=== PATIENT | male | born 1970 | race Caucasian/White ===

== ENCOUNTER 2025-02-27 11:02 | Emergency (ER) | payer BC, SELFPAY ==
--- NOTE | 2025-02-27 11:05 | ED.URI ---
HPI - URI/Sore Throat General Chief Complaint: Upper Respiratory Infection Stated Complaint: Sinus Infection Symptoms/Rib Pain Time Seen by Provider: 02/27/25 11:05 Source: patient Mode of arrival: ambulatory Limitations: no limitations History of Present Illness HPI Narrative: Jesús is a 54 year old male patient presenting to the clinic today with complaints of nasal congestion, sinus pressure, sneezing, nonproductive cough, and bilateral rib pain from sneezing and coughing. He reports symptoms have been going on for 5 days. He denies any fevers, chills, body aches, chest pain, or shortness of breath. States ribs only her when he is coughing or sneezing. No known sick contacts. Has been taking Afrin nasal spray for nasal congestion. Has had to call off work for 2 shifts and is needing a work note to return to work. Patient reports he is feeling better Related Data Allergies Allergy/AdvReac Type Severity Reaction Status Date / Time No Known Allergies Allergy Verified 02/27/25 11:30 Review of Systems Review of Systems: Pertinent positives per HPI. Patient denies any fever, chills, rash, headache, visual changes, dizziness, cough, shortness of breath, chest pain, palpitations, nausea, vomiting, diarrhea, constipation, abdominal pain, or any urinary issues. PMFSH Comments At the time of my signature, I reviewed and agree with the nursing past medical, surgical, social, and family history. There is no relevant family history pertinent to the patient complaint. Exam Narrative: General: Well-developed, well nourished, in no apparent distress Head: Normocephalic, atraumatic Eyes: Pupils equally round and reactive to light bilaterally, EOM intact, sclera and conjunctive clear, no discharge, lids normal Ears: TMs intact and clear, ear canals clear, no drainage, grossly hearing normal. Nose: Nares patent, clear nasal discharge, severe right turbinates inflammation, moderate left turbinates inflammation, right maxillary tenderness. Mouth: Oral pharynx without lesions or masses, good dentition, MMM. Postnasal drip Neck: Supple, trachea midline, no enlargement of anterior or posterior cervical nodes, no thyroid masses or goiter palpable. Cardio: Regular rate and rhythm, s1 and s2 normal, no murmur appreciated. Resp: Clear to auscultation bilaterally, no rhonchi, rales, wheezing or rubs Course Course Emergency Course: Portions of this record may have been created with voice recognition software. Level of Care: Express Care Visit Vital Signs Vital signs: Vital Signs Temperature 36.8 C 02/27/25 11:17 Pulse Rate 91 02/27/25 11:17 Respiratory Rate 14 02/27/25 11:17 Blood Pressure 131/79 02/27/25 11:17 Pulse Oximetry 99 02/27/25 11:17 Oxygen Delivery Room Air 02/27/25 11:17 Temperature 36.8 C 02/27/25 11:17 Pulse Rate 91 02/27/25 11:17 Respiratory Rate 14 02/27/25 11:17 Blood Pressure 131/79 02/27/25 11:17 Pulse Oximetry 99 02/27/25 11:17 Oxygen Delivery Room Air 02/27/25 11:17 Vital signs reviewed MDM - URI/Sore Throat MDM Narrative Medical decision making narrative: At the time of visit patient is resting comfortably on the exam table. Patient appears to be nontoxic. Complaints of nasal congestion, sinus pressure, sneezing, nonproductive cough, and bilateral rib pain from sneezing and coughing. He reports symptoms have been going on for 5 days. He denies any fevers, chills, body aches, chest pain, or shortness of breath. States ribs only her when he is coughing or sneezing. No known sick contacts. Has been taking Afrin nasal spray for nasal congestion. Has had to call off work for 2 shifts and is needing a work note to return to work. Patient reports he is feeling better. On exam patient has severe turbinates swelling of the right nare and moderate turbinates swelling to the left with right maxilla tenderness. Clear nasal drainage Plan: I suspect patient has viral/allergic sinusitis. Prescription for prednisone was sent to the pharmacy as this will help with the sinus pressure, congestion, and inflammation in his rib cage Work note was given. Supportive measures were discussed with the patient and they voiced understanding discharge instructions and agrees to treatment plan. Return precautions reviewed Differential Diagnosis Differential diagnosis: Likely upper respiratory infection, otitis media, sinusitis, viral infection, bronchitis, influenza, pharyngitis and other (COVID, rib contusion, rib fracture, pneumonia) Discharge Plan Discharge Clinical Impression: Sinusitis Qualifiers: Sinusitis location: maxillary Chronicity: acute Recurrence: non-recurrent Qualified Code(s): J01.00 - Acute maxillary sinusitis, unspecified Patient Disposition: Home Condition: Stable Instructions: Antibiotic Form, Sinusitis (ED) Additional Instructions: I suspect you likely have viral sinusitis. Take prescription medications only as prescribed-prednisone Increase fluids and stay well hydrated May take Tylenol or motrin as directed on bottle for pain/fever May use Flonase 1 spray in each nare daily May take OTC antihistamines such as Zyrtec or Claritin daily as directed on bottle May apply Vicks vapor rub to chest to open sinuses Sinus rinses for congestion Cepacol spray, cough drops, throat lozenges, warm tea with honey/lemon, gargle salt water to soothe throat BRAT diet for diarrhea Clear liquids x 24 hours then advance as tolerated for nausea/vomiting Go to the ED if you develop a worsening in your condition- high fever not controlled by Tylenol or Motrin, dehydration, weakness, lethargy, shortness of breath, or chest pain. Follow up with your PCP in 3-5 days if symptoms persist. Patient Language: Cypriot Prescriptions: New prednisone 20 mg tablet 40 mg PO DAILY 5 Days Qty: 10 0RF Follow-up/Referrals: Duong Phillips MD [Primary Care Provider] - Stand Alone Forms: Work/School Release IP Time of Disposition: 11:25 Quality NIHSS Nursing Documentation ED NIHSS nursing documentation: reviewed/agree
[2025-02-27 11:17] VITALS: BP 131/79; PULSE 91; RESP 14; TEMP 36.8; O2SAT 99
== END 2025-02-27 11:31 | disposition home or self-care (01) ==
PROVIDERS: Emergency Provider Nurse Practitioner Family; PCP Family Medicine
DX: J01.90 Acute sinusitis, unspecified (principal)
CPT/HCPCS: 99203; G0463